=== PATIENT | female | born 1985 | race Caucasian/White ===

== ENCOUNTER 2018-05-07 12:58 | Emergency (ER) | END 2018-05-07 17:29 | disposition home or self-care (01) ==

== ENCOUNTER 2018-07-06 18:29 | Emergency (ER) | END 2018-07-06 23:20 | disposition home or self-care (01) ==

== ENCOUNTER 2018-08-11 02:35 | Emergency (ER) | END 2018-08-11 07:20 | disposition home or self-care (01) ==

== ENCOUNTER 2018-09-11 21:51 | Emergency (ER) | END 2018-09-12 02:53 | disposition home or self-care (01) ==

== ENCOUNTER 2018-10-08 22:47 | Emergency (ER) | END 2018-10-09 05:12 | disposition home or self-care (01) ==

== ENCOUNTER 2018-11-01 23:54 | Inpatient (IN) | END 2018-11-05 11:11 | disposition home or self-care (01) | DRG 342 ==

== ENCOUNTER 2019-02-22 11:47 | Emergency (ER) | payer OTHER ==
[~2019-02-22] VITALS: Ht 165.1 cm; Wt 111.0 kg
[~2019-02-22 11:47] MED LIST: DOCU-216 PO; HYDR-4012 PO; IBUP-1542 PO
[2019-02-22 11:55] VITALS: Ht 165.1 cm; Wt 111.0 kg
[2019-02-22] MEDS ORDERED: ACET500C5 PO (14:11)
[2019-02-22] MEDS ORDERED: IBUP800T48 PO (14:11)
[2019-02-22] MEDS ORDERED: PSEU-79 PO (14:11)
--- NOTE | 2019-02-22 14:25 | ERD ---
ER Documentation Chief Complaint Chief Complaint LEFT EAR PAIN WITH COUGH/CONGESTION/FEVER X 4 DAYS HPI 34-year-old female presenting with ear pain congestion and cough times 4 days. Patient has had tactile fevers. Took Excedrin at 8 AM. Denies medical problems. Surgical history is hernia, appendicitis, tonsillectomy. Social history denies. Allergic to Dilaudid ROS All systems reviewed and are negative except as per history of present illness. Medications Home Meds Active Scripts Pseudoephedrine Hcl* (Suphedrin*) 30 Mg Tablet, 30 MG PO Q6 PRN for CONGESTION, #30 TAB Prov:KAREN RICKS PA-C 02/22/19 Acetaminophen* (Tylophen*) 500 Mg Capsule, 2 CAP PO Q8H PRN for PAIN AND OR ELEVATED TEMP, #20 CAP Prov:KAREN RICKS PA-C 02/22/19 Ibuprofen* (Motrin*) 800 Mg Tab, 800 MG PO Q6, #30 TAB Prov:KAREN RICKS PA-C 02/22/19 Hydrocodone/Acetaminophen ([place] 7.5-325 Tablet) 1 Each Tablet, 1 EACH PO Q6H, #14 TAB Prov:MAHAD MARQUES 11/04/18 Docusate Sodium (Dok) 100 Mg Capsule, 100 MG PO BID, #14 CAP Prov:MAHAD MARQUES. 11/04/18 Ibuprofen* (Motrin*) 600 Mg Tab, 600 MG PO Q6H PRN for PAIN AND OR ELEVATED TEMP, #20 TAB Prov:RAKESH MEJIA MD 10/09/18 Allergies Allergies: Coded Allergies: pineapple (Unverified Allergy, Mild, 11/02/18) RASH hydromorphone (Unverified Adverse Reaction, Severe, RASH, 11/03/18) PMhx/Soc History of Surgery: Yes (TONSILLECTOMY, CHOLECYSTECTOMY ) Anesthesia Reaction: No Hx Neurological Disorder: No Hx Respiratory Disorders: No Hx Cardiac Disorders: No Hx Psychiatric Problems: Yes Hx Miscellaneous Medical Probl: Yes (LUPUS X 1 YEAR) Hx Alcohol Use: No Hx Substance Use: No Hx Tobacco Use: No Smoking Status: Never smoker FmHx Family History: No diabetes, No coronary disease, No other Physical Exam Vitals Vital Signs Date Temp Pulse Resp B/P (MAP) Pulse Ox O2 O2 Flow FiO2 Time Delivery Rate 02/22/19 98.0 96 18 139/63 97 11:55 (88) Physical Exam GENERAL: The patient is well-appearing, well-nourished, in no acute distress HEENT: Atraumatic. Conjunctivae are pink. Pupils equal, round, and reactive to light. There is no scleral icterus. Tympanic membranes clear bilaterally. Oropharynx clear. NECK: C-spine is soft and supple. There is no meningismus. There is no cervical lymphadenopathy CHEST: Clear to auscultation bilaterally. There are no rales, wheezes or rhonchi. HEART: Regular rate and rhythm. No murmurs, clicks, rubs or gallops. ABDOMEN:Soft, nontender and nondistended. Good bowel sounds. No rebound or guarding. No gross peritonitis. No gross organomegaly or masses. Results 24 hrs Laboratory Tests Test 02/22/19 13:03 02/22/19 13:04 02/22/19 13:09 Bedside Urine pH (LAB) 6.5 Bedside Urine Protein (LAB) 1+ Bedside Urine Glucose (UA) Negative Bedside Urine Ketones (LAB) Trace Bedside Urine Blood Trace-intact Bedside Urine Nitrite (LAB) Negative Bedside Urine Leukocyte Esterase (L Negative POC Beta HCG, Qualitative NEGATIVE Monoscreen Negative Procedures/MDM ER course: Strep, mono and influenza negative. Urine negative. MDM: 34 yr old female presenting with generalized fatigue and URI symptoms. Patient likely has viral syndrome. Patient be discharged with supportive medications. I have low suspicion for infectious etiology. Patient is discharged with supportive medications and told to follow-up with primary care within 1-2 days for close evaluation. Patient is told if symptoms change or worsen to return to the ER. All questions answered at discharge. Departure Diagnosis: Primary Impression: Viral syndrome Condition: Stable Patient Instructions: Viral Syndrome (Adult) Referrals: COMMUNITY CLINICS YOU HAVE RECEIVED A MEDICAL SCREENING EXAM AND THE RESULTS INDICATE THAT YOU DO NOT HAVE A CONDITION THAT REQUIRES URGENT TREATMENT IN THE EMERGENCY DEPARTMENT. FURTHER EVALUATION AND TREATMENT OF YOUR CONDITION CAN WAIT UNTIL YOU ARE SEEN IN YOUR DOCTORS OFFICE WITHIN THE NEXT 1-2 DAYS. IT IS YOUR RESPONSIBILITY TO MAKE AN APPOINTMENT FOR FOLOW-UP CARE. IF YOU HAVE A PRIMARY DOCTOR --you should call your primary doctor and schedule an appointment IF YOU DO NOT HAVE A PRIMARY DOCTOR YOU CAN CALL OUR PHYSICIAN REFERRAL HOTLINE AT IF YOU CAN NOT AFFORD TO SEE A PHYSICIAN YOU CAN CHOSE FROM THE FOLLOWING [facility] CLINICS [facility] [address] [facility] [address] [facility] [address] [facility] [address] [facility] [address] [facility] [facility]. [address] Additional Instructions: FOLLOW UP WITH YOUR PRIMARY CARE PHYSICIAN TOMORROW.Return to this facility if you are not improving as expected. KAREN RICKS PA-C Feb 22, 2019 14:25
[2019-02-22 14:40] VITALS: BP 124/68; PULSE 76; RESP 16
== END 2019-02-22 14:41 | disposition home or self-care (01) ==
LOC: FTE 11:47
DX: B34.9 Viral infection, unspecified (principal)
CPT/HCPCS: 81003; 81025; 86308; 87400; 87880; Z7502; 99283

== ENCOUNTER 2019-02-23 20:06 | Emergency (ER) | payer OTHER ==
[~2019-02-23] VITALS: Ht 167.6 cm; Wt 110.1 kg
[~2019-02-23 20:06] MED LIST changes: +ACET500C5 PO; +IBUP800T48 PO; +PSEU-79 PO
[2019-02-23 20:10] VITALS: Ht 167.6 cm; Wt 110.1 kg
--- NOTE | 2019-02-24 02:09 | ERD ---
ER Documentation Chief Complaint Chief Complaint right upper abd pain x 2 days HPI This is a 34-year-old female with a past medical history of lupus, hernia status post repair, appendicitis status post appendectomy, cholelithiasis status post reported cholecystectomy who is presenting to the emergency department for 1-2 days of feeling generally unwell, waxing and waning aching right upper quadrant abdominal pain, nausea with a few episodes of nonbilious nonbloody vomiting, and one episode of loose watery brown nonbloody diarrhea today. The patient denies any dysuria or hematuria or urgency or frequency. She does not believe she could be . She does not believe she could have a sexually transmitted infection. She denies any vaginal burning or bleeding or pain or discharge. The patient was evaluated in the emergency department 2 days ago for ear pain, cough and nasal congestion with subjective fevers. She was diagnosed with a viral syndrome and discharged with prescriptions for Tylenol, Motrin and Sudafed. The patient reports that her ear pain has resolved, but these other symptoms began after assessment 2 days ago. The patient denies current fever or chills. The patient has had no headache or vision changes. The patient does not endorse neck or back pain. The patient denies lightheadedness or dizziness. The patient has had no chest pain or trouble breathing. The patient has had no focal deficits. The patient has had no weakness or numbness or tingling to the face or extremities. ROS All systems reviewed and are negative except as per history of present illness. Medications Home Meds Active Scripts Pseudoephedrine Hcl* (Suphedrin*) 30 Mg Tablet, 30 MG PO Q6 PRN for CONGESTION, #30 TAB Prov:KAREN RICKS PA-C 02/22/19 Acetaminophen* (Tylophen*) 500 Mg Capsule, 2 CAP PO Q8H PRN for PAIN AND OR ELEVATED TEMP, #20 CAP Prov:KAREN RICKS PA-C 02/22/19 Ibuprofen* (Motrin*) 800 Mg Tab, 800 MG PO Q6, #30 TAB Prov:KAREN RICKS PA-C 02/22/19 Docusate Sodium (Dok) 100 Mg Capsule, 100 MG PO BID, #14 CAP Prov:MAHAD MARQUES 11/04/18 Discontinued Scripts Hydrocodone/Acetaminophen ([place] 7.5-325 Tablet) 1 Each Tablet, 1 EACH PO Q6H, #14 TAB Prov:BORA MARQUESJennifer Gaston 11/04/18 Ibuprofen* (Motrin*) 600 Mg Tab, 600 MG PO Q6H PRN for PAIN AND OR ELEVATED TEMP, #20 TAB Prov:RAKESH MEJIA MD 10/09/18 Allergies Allergies: Coded Allergies: pineapple (Unverified Allergy, Mild, 11/02/18) RASH hydromorphone (Unverified Adverse Reaction, Severe, RASH, 11/03/18) PMhx/Soc History of Surgery: Yes (TONSILLECTOMY, CHOLECYSTECTOMY ) Anesthesia Reaction: No Hx Neurological Disorder: No Hx Respiratory Disorders: No Hx Cardiac Disorders: No Hx Psychiatric Problems: Yes Hx Miscellaneous Medical Probl: Yes (LUPUS X 1 YEAR) Hx Alcohol Use: No Hx Substance Use: No Hx Tobacco Use: No FmHx Family History: No diabetes Physical Exam Vitals Vital Signs Date Temp Pulse Resp B/P (MAP) Pulse Ox O2 O2 Flow FiO2 Time Delivery Rate 02/23/19 99.3 104 18 136/89 97 20:10 (105) Physical Exam Const: No apparent distress, well-developed, well-nourished Head: Normocephalic, Atraumatic Eyes: Normal Conjunctiva. Extraocular movements grossly intact. ENT: Normal External Ears, Nose and Mouth. Neck: Full range of motion. No meningismus. Resp: Clear to auscultation bilaterally, No wheezes, rales or rhonchi Cardio: Regular rate and rhythm. No murmurs, rubs or gallops Abd: Soft, non distended. Mild right upper quadrant abdominal tenderness. Normal bowel sounds. Healed surgical scars. Skin: No petechiae or rashes Back: No midline tenderness. No CVA tenderness Ext: No cyanosis, or edema Neur: Awake and alert, oriented 4. Cranial nerves intact. No facial droop. Normal strength, sensation and coordination. Psych: Normal Mood and Affect Result Diagram: 02/24/1920402/24/19 020 Results 24 hrs Laboratory Tests Test 02/24/19 02:00 02/24/19 02:02 02/24/19 02:05 Bedside Urine pH (LAB) 6.0 Bedside Urine Protein (LAB) Negative Bedside Urine Glucose (UA) Negative Bedside Urine Ketones (LAB) Negative Bedside Urine Blood Trace-lysed Bedside Urine Nitrite (LAB) Negative Bedside Urine Leukocyte Esterase Negative (L POC Beta HCG, Qualitative NEGATIVE White Blood Count 7.9 10^3/ul Red Blood Count 4.57 10^6/ul Hemoglobin 12.2 g/dl Hematocrit 38.9 % Mean Corpuscular Volume 85.1 fl Mean Corpuscular Hemoglobin 26.7 pg Mean Corpuscular 31.4 g/dl Hemoglobin Concent Red Cell Distribution Width 13.6 % Platelet Count 319 10^3/UL Mean Platelet Volume 11.1 fl Immature Granulocytes % 0.500 % Neutrophils % 65.3 % Lymphocytes % 23.3 % Monocytes % 7.7 % Eosinophils % 2.9 % Basophils % 0.3 % Nucleated Red Blood Cells % 0.0 /100WBC Immature Granulocytes # 0.040 10^3/ul Neutrophils # 5.2 10^3/ul Lymphocytes # 1.8 10^3/ul Monocytes # 0.6 10^3/ul Eosinophils # 0.2 10^3/ul Basophils # 0.0 10^3/ul Nucleated Red Blood Cells # 0.0 10^3/ul Sodium Level 144 mmol/L Potassium Level 4.5 mmol/L Chloride Level 107 mmol/L Carbon Dioxide Level 27 mmol/L Anion Gap 10 Blood Urea Nitrogen 8 mg/dl Creatinine 0.47 mg/dl Est Glomerular Filtrat Rate mL/min > 60 mL/min Glucose Level 92 mg/dl Calcium Level 8.8 mg/dl Total Bilirubin 0.2 mg/dl Direct Bilirubin 0.00 mg/dl Indirect Bilirubin 0.2 mg/dl Aspartate Amino Transf (AST/SGOT) 24 IU/L Alanine 23 IU/L Aminotransferase (ALT/SGPT) Alkaline Phosphatase 109 IU/L Total Protein 8.0 g/dl Albumin 4.2 g/dl Globulin 3.80 g/dl Albumin/Globulin Ratio 1.10 Lipase 23 U/L Current Medications Medications Dose Sig/Isidro Start Time Status Last (Trade) Ordered Route PRN Stop Time Admin Dose Reason Admin Sodium 1,000 ml @ Q1H ONCE 02/24/19 DC 02/24/19 Chloride 1,000 mls/hr IV 02:30 02:18 02/24/19 03:29 Ondansetron 4 mg ONCE ONCE 02/24/19 DC 02/24/19 HCl (Zofran IV 02:10 02:18 Inj) 02/24/19 02:13 Procedures/MDM MDM The patient's presentation warrants further investigation. Previous medical records, if available, were reviewed. LABS The patient's laboratory testing was obtained and reviewed. No emergent treat ment was required unless described below. CBC: No E/o systemic infection or severe anemia or thrombocytopenia Chemistry: No E/o severe acidosis or alkalosis or renal failure or liver disease or diabetic ketoacidosis Lipase: No E/o pancreatitis Urine: No E/o infection. HCG: Negative IMAGING Imaging and Radiology interpretation reviewed. US RUQ FINDINGS: LIVER: Measures 18.9 cm in length with echogenicity suggesting fatty infiltration.. GALLBLADDER: Unremarkable. There is no sonographic Andrews's sign. COMMON BILE DUCT: Measures up to 0.4 cm. VISUALIZED PANCREAS: Unremarkable. RIGHT KIDNEY: Measures 10.3 cm in length without appreciated abnormality. VISUALIZED AORTA AND INFERIOR VENA CAVA: Unremarkable. IMPRESSION: Unremarkable right upper quadrant ultrasound. Electronically viewed and signed by Betina Spencer Physician on 02/24/2019 03:57 TREATMENT/DISPOSITION The patient presents with abdominal pain, nausea, vomiting and diarrhea. Gastroenteritis versus a viral syndrome or both possible etiologies. I do believe her symptoms will be self-limited. The patient does not have any evidence of peritonitis. The patient does not have clinical symptoms concerning for mesenteric ischemia or ischemic colitis. The patient does have right upper quadrant tenderness. That said, the right upper quadrant ultrasound is unremarkable. I have low suspicion for gallstones, cholecystitis or biliary colic. The patient does not have any epigastric pain. I have low suspicion for gastritis, PUD or GERD. The patient does not have left upper quadrant tenderness. I have low suspicion for pancreatitis. The patient does not have any right lower quadrant tenderness, or periumbilical tenderness. She had a previous appendicitis. I have low suspicion for appendicitis. The patient does not have suprapubic tenderness. I have decreased suspicion for cystitis. The patient does not have any left lower quadrant tenderness, and I have low suspicion for diverticulosis or diverticulitis. The patient does not have any flank tenderness. The patient does not have gross hematuria. I have decreased suspicion for nephrolithiasis or renal colic. The patient does not have any palpable pulsatile mass or severe abdominal pain radiating to the back. I have low suspicion for aortic aneurysm, dissection or rupture. The patient was treated with IV fluids and Zofran in the emergency department. DISCHARGE Upon reevaluation of the patient, symptoms have improved. No emergent diagnoses were identified. At this time, I feel that the patient stable for discharge. The patient was instructed to follow-up with a primary care physician in 1-3 days. The patient will be given strict precautions with which to return to the emergency department. Prescriptions: Zofran The patient's blood pressure was elevated at greater than 120/80 while in the emergency department. The patient was otherwise stable with no evidence of hypertensive urgency or emergency. The patient does not require admission for blood pressure control. I have discussed with the patient the risks of hypertension. I have instructed the patient to return to the ER for any new or worsening symptoms including chest pain, shortness of breath, headache, blurred vision, confusion, nausea, vomiting or LOC. I have advised the patient to follow up with the primary care physician for outpatient monitoring and treatment for hypertension in 1-3 days. Disclaimer: Inadvertent spelling and grammatical errors are likely due to EHR/dictation software use and do not reflect on the overall quality of patient care. Note that the electronic time recorded on this note does not necessarily reflect the actual time of the patient encounter. Departure Diagnosis: Primary Impression: Abdominal pain Abdominal location: right upper quadrant Qualified Codes: R10.11 - Right upper quadrant pain Additional Impression: Nausea vomiting and diarrhea Condition: Stable Patient Instructions: Abdominal Pain, Nausea and Vomiting-Adult Additional Instructions: Thank you for for coming to [facility] for your care today. Please ask your nurse or provider if you have questions about your care today and do not leave until all your questions have been answered. Please use any medications given as directed and follow-up with your doctor (or the doctor you were referred to) in the next 1-3 days. If you do not have a primary care doctor you may follow up at the [facility] or [facility] clinic (listed below). You may also use motrin and tylenol as needed for fever and/or pain unless instructed otherwise by your provider or nurse. Indications for more urgent follow-up have been discussed, but you may return to the Emergency Department at ANY time for any worrisome or worsening symptoms. If you have abdominal pain, please know that no test or exam you received is perfect and you should follow up within 8 hours for continued pain. If you had any imaging studies today, such as an X-Ray or CT Scan, these studies will be reviewed later by a radiologist. You will be called if there are important findings that were not identified today, so make sure the contact information you provided at registration is correct. If you received any narcotic pain control medicine today, such as Vicodin, Morphine or Dilaudid, your coordination and judgment may be affected for a number of hours. Please do not drive or operate heavy machinery, and you may want someone to assist you at home. If you were given a prescription for narcotic medication, be aware that it is very addictive- use sparingly and only if necessary. PLEASE SEEK FURTHER EVALUATION AND MANAGEMENT AT YOUR DOCTORS OFFICE WITHIN THE NEXT 1-3 DAYS. IT IS YOUR RESPONSIBILITY TO MAKE AN APPOINTMENT FOR FOLOW-UP CARE. IF YOU HAVE A PRIMARY DOCTOR, PLEASE CALL THEIR OFFICE TO SCHEDULE AN APPOINTMENT FOR FOLLOW UP. IF YOU DO NOT HAVE A PRIMARY DOCTOR YOU CAN CALL OUR PHYSICIAN REFERRAL HOTLINE AT IF YOU CAN NOT AFFORD TO SEE A PHYSICIAN YOU CAN CHOSE FROM THE FOLLOWING [facility] CLINICS: [facility] [address] [facility]. [facility] [address] [facility] [facility] [address] [facility] [facility] [address] [facility]. [facility] [address] [facility]. [facility]. [address] MD Feb 24, 2019 02:03
[2019-02-24] MEDS ORDERED: ONDANSETRON 4 MG INJ IV ONE (02:10)
[2019-02-24] MEDS ORDERED: SOD CHLORIDE 0.9% 1,000 ML IV ONE (02:30)
[2019-02-24] MEDS ORDERED: ONDA8TAB9 PO (04:53)
[2019-02-24 04:55] VITALS: BP 123/87; PULSE 95; RESP 18
== END 2019-02-24 05:15 | disposition home or self-care (01) ==
LOC: E/R 20:06
DX: R10.11 Right upper quadrant pain (principal); R11.2 Nausea with vomiting, unspecified; R19.7 Diarrhea, unspecified
CPT/HCPCS: 36415; 76705; 80053; 81003; 81025; 83690; 85025; 96374; J2405; J7030; Z7502

== ENCOUNTER 2019-04-12 11:16 | Emergency (ER) | payer OTHER ==
[~2019-04-12] VITALS: Wt 90.0 kg
[~2019-04-12 11:16] MED LIST changes: -HYDR-4012 PO; -IBUP-1542 PO; +ONDA8TAB9 PO
[2019-04-12] MEDS ORDERED: ONDANSETRON 4 MG INJ IV STA (12:13)
[2019-04-12] MEDS ORDERED: FAMOTIDINE 20 MG INJ IV STA (12:13)
[2019-04-12] MEDS ORDERED: SOD CHLORIDE 0.9% 500 ML IV ONE (12:30)
[2019-04-12] MEDS ORDERED: IBUP-1542 PO (16:13)
[2019-04-12] MEDS ORDERED: ONDA4TAB14 PO (16:13)
--- NOTE | 2019-04-12 16:21 | ERD ---
ER Documentation Chief Complaint Chief Complaint VOMITING X 2 DAYS HPI 34-year-old female patient with no significant past medical history presents to the ED complaining of mid abdominal pain that started 2 days ago associated with some vomiting. States that it does radiate to the right side of her abdomen. States that she did get an appendectomy in 31 October 2018. Denies any chest pain, shortness of breath, chest pain, wheezing, dysuria, urgency, frequency. ROS All systems reviewed and are negative except as per history of present illness. Medications Home Meds Active Scripts Acetaminophen* (Tylophen*) 500 Mg Capsule, 1 CAP PO Q6H PRN for PAIN AND OR ELEVATED TEMP, #20 CAP Prov:YOSI SHELTON PA-C 04/12/19 Famotidine* (Pepcid*) 20 Mg Tablet, 20 MG PO BID, #20 TAB Prov:YOSI SHELTON PA-C 04/12/19 Ondansetron (Ondansetron Odt) 4 Mg Tab.rapdis, 4 MG PO Q6H PRN for NAUSEA AND/OR VOMITING, #10 TAB Prov:YOSI SHELTON PA-C 04/12/19 Ondansetron Hcl* (Zofran*) 8 Mg Tablet, 8 MG PO Q6H PRN for NAUSEA AND OR VOMITING, #20 TAB Prov:GINNA RIVAS MD 02/24/19 Pseudoephedrine Hcl* (Suphedrin*) 30 Mg Tablet, 30 MG PO Q6 PRN for CONGESTION, #30 TAB Prov:KAREN RICKS PA-C 02/22/19 Acetaminophen* (Tylophen*) 500 Mg Capsule, 2 CAP PO Q8H PRN for PAIN AND OR ELEVATED TEMP, #20 CAP Prov:KAREN RICKS PA-C 02/22/19 Ibuprofen* (Motrin*) 800 Mg Tab, 800 MG PO Q6, #30 TAB Prov:KAREN RICKS PA-C 02/22/19 Docusate Sodium (Dok) 100 Mg Capsule, 100 MG PO BID, #14 CAP Prov:MAHAD MARQUES 11/04/18 Allergies Allergies: Coded Allergies: pineapple (Unverified Allergy, Mild, 11/02/18) RASH hydromorphone (Unverified Adverse Reaction, Severe, RASH, 11/03/18) PMhx/Soc History of Surgery: Yes (TONSILLECTOMY, CHOLECYSTECTOMY ,HERNIA REPAIR) Anesthesia Reaction: No Hx Neurological Disorder: No Hx Respiratory Disorders: No Hx Cardiac Disorders: No Hx Psychiatric Problems: Yes Hx Miscellaneous Medical Probl: Yes (LUPUS X 1 YEAR) Hx Alcohol Use: No Hx Substance Use: No Hx Tobacco Use: No Smoking Status: Never smoker FmHx Family History: No diabetes, No coronary disease Physical Exam Vitals Vital Signs Date Temp Pulse Resp B/P (MAP) Pulse Ox O2 O2 Flow FiO2 Time Delivery Rate 04/12/19 98.1 89 17 103/63 99 Room Air 16:35 (76) 04/12/19 98.0 98 18 150/78 99 11:19 (102) Physical Exam Const: [id number], well-nourished. In no acute distress. Head: Atraumatic, normocephalic Eyes: Normal Conjunctiva without injection. No purulent discharge. ENT: Normal external ear, nose. Moist oropharynx without tonsillar exudates. Non-erythematous pharynx. Uvula midline. No drooling. No trismus. Neck: No cervical midline tenderness. Full range of motion. No meningismus. No cervical lymphadenopathy. No JVD. Resp: Clear to auscultation bilaterally. No wheezing, rhonchi, rales, or crackles. No accessory muscle use. No retractions. Cardio: Regular rate and rhythm. No murmurs, rubs or gallops. Abd: Soft, nontender, non distended. Normal bowel sounds. No palpable masses. No rebound tenderness. No guarding. Negative McBurney's point. Negative psoas sign. Negative obturator sign. Skin: No petechiae or rashes Back: No midline tenderness. No CVA tenderness. Ext: No cyanosis, or edema. Neur: Awake and alert. Normal gait. Normal coordination. Psych: Normal Mood and Affect Result Diagram: 04/12/19 1226 04/12/19 1226 Results 24 hrs Laboratory Tests Test 04/12/19 12:26 04/12/19 13:39 White Blood Count 10.7 10^3/ul Red Blood Count 4.75 10^6/ul Hemoglobin 12.9 g/dl Hematocrit 39.9 % Mean Corpuscular Volume 84.0 fl Mean Corpuscular Hemoglobin 27.2 pg Mean Corpuscular Hemoglobin Concent 32.3 g/dl Red Cell Distribution Width 13.2 % Platelet Count 364 10^3/UL Mean Platelet Volume 11.0 fl Immature Granulocytes % 0.300 % Neutrophils % 75.6 % Lymphocytes % 15.3 % Monocytes % 6.9 % Eosinophils % 1.6 % Basophils % 0.3 % Nucleated Red Blood Cells % 0.0 /100WBC Immature Granulocytes # 0.030 10^3/ul Neutrophils # 8.1 10^3/ul Lymphocytes # 1.6 10^3/ul Monocytes # 0.7 10^3/ul Eosinophils # 0.2 10^3/ul Basophils # 0.0 10^3/ul Nucleated Red Blood Cells # 0.0 10^3/ul Urine Color YELLOW Urine Clarity SLIGHTLY CLOUDY Urine pH 5.0 Urine Specific [place] 1.025 Urine Ketones NEGATIVE mg/dL Urine Nitrite NEGATIVE mg/dL Urine Bilirubin NEGATIVE mg/dL Urine Urobilinogen NEGATIVE mg/dL Urine Leukocyte Esterase NEGATIVE Adalid/ul Urine Microscopic RBC 1 /HPF Urine Microscopic WBC 2 /HPF Urine Squamous Epithelial Cells FEW /HPF Urine Mucus MODERATE /HPF Urine Hemoglobin 1+ mg/dL Urine Glucose NEGATIVE mg/dL Urine Total Protein NEGATIVE mg/dl Sodium Level 143 mmol/L Potassium Level 4.3 mmol/L Chloride Level 108 mmol/L Carbon Dioxide Level 25 mmol/L Anion Gap 10 Blood Urea Nitrogen 12 mg/dl Creatinine 0.50 mg/dl Est Glomerular Filtrat Rate mL/min > 60 mL/min Glucose Level 95 mg/dl Calcium Level 9.3 mg/dl Total Bilirubin 0.5 mg/dl Direct Bilirubin 0.00 mg/dl Indirect Bilirubin 0.5 mg/dl Aspartate Amino Transf (AST/SGOT) 22 IU/L Alanine Aminotransferase (ALT/SGPT) 14 IU/L Alkaline Phosphatase 115 IU/L Total Protein 8.7 g/dl Albumin 4.5 g/dl Globulin 4.20 g/dl Albumin/Globulin Ratio 1.07 Lipase 32 U/L POC Beta HCG, Qualitative NEGATIVE Current Medications Medications Dose Sig/Isidro Start Time Status Last (Trade) Ordered Route PRN Stop Time Admin Dose Reason Admin Ondansetron 4 mg ONCE STAT 04/12/19 DC 04/12/19 HCl (Zofran IV 12:13 12:27 Inj) 04/12/19 12:15 Famotidine 20 mg ONCE STAT 04/12/19 DC 04/12/19 (Pepcid Iv) IV 12:13 12:27 04/12/19 12:15 Sodium 500 ml @ Q1H ONCE 04/12/19 DC 04/12/19 Chloride 500 mls/hr IV 12:30 12:27 04/12/19 13:29 Procedures/MDM 34-year-old female patient with a past medical history of appendectomy presents to the ED complaining of mid abdominal pain that started 2 days ago associated with vomiting. Patient is afebrile and nontoxic appearing. Patient was further worked up with CBC, CMP, lipase, UA, CT of the abdomen and pelvis without contrast. This is patient's second visit to the ED for similar symptoms. Patient's pain and symptoms have improved after treatment with famotidine 20 mg IV, 4 mg IV Zofran, 500 mL normal saline. CBC: No leukocytosis. No e/o of systemic infection. No e/o anemia. CMP: No e/o severe acidosis, alkalosis, renal failure, diabetic ketoacidosis, liver disease Lipase within normal limits. Urine: No leukocyte esterase, no nitrites, no hematuria. Urine : Negative IMPRESSION: 1. No evidence of acute intra-abdominal/pelvic inflammatory process. No evidence of bowel obstruction. The appendix is not visualized. Status post appendectomy. Small hiatal hernia. 2. Status post cholecystectomy. 3. Punctate left-sided nonobstructing nephrolithiasis. No evidence of obstructive uropathy within both kidneys. 4. No evidence of free fluid or free air. No gross focal fluid collections. Patient had some punctate left-sided nonobstructing nephrolithiasis noted. Differentials include gastritis, GERD. Low suspicion for ectopic , ovarian torsion,cholecystitis, choledocholithiasis, cholangitis, pancreatitis, appendicitis, bowel obstruction, ileus, volvulus, nephrolithiasis, pyelonephritis, hepatitis, perforated viscus, diverticulitis, strangulated/incarcerated hernia, DKA, acute abdomen, mesenteric ischemia or other emergent conditions. Diagnosis: Abdominal pain Discharge medications: Tylenol, Pepcid, Zofran Follow up with primary care physician in 1-2 days for referral to attendant arcade. Instructed patient to return to the ED sooner for any worsening symptoms. Patient's questions were answered. Patient understood and agreed with discharge plan. Patient discharged stable. Disclaimer: Inadvertent spelling and grammatical errors are likely due to EHR/dictation software use and do not reflect on the overall quality of patient care. Also, please note that the electronic time recorded on this note does not necessarily reflect the actual time of the patient encounter. Departure Diagnosis: Primary Impression: Abdominal pain Abdominal location: unspecified location Qualified Codes: R10.9 - Unspecified abdominal pain Condition: Stable Patient Instructions: Abdominal Pain, Identifying Kidney Stones, Preventing Kidney Stones Referrals: [facility] YOU HAVE RECEIVED A MEDICAL SCREENING EXAM AND THE RESULTS INDICATE THAT YOU DO NOT HAVE A CONDITION THAT REQUIRES URGENT TREATMENT IN THE EMERGENCY DEPARTMENT. FURTHER EVALUATION AND TREATMENT OF YOUR CONDITION CAN WAIT UNTIL YOU ARE SEEN IN YOUR DOCTORS OFFICE WITHIN THE NEXT 1-2 DAYS. IT IS YOUR RESPONSIBILITY TO MAKE AN APPOINTMENT FOR FOLOW-UP CARE. IF YOU HAVE A PRIMARY DOCTOR --you should call your primary doctor and schedule an appointment IF YOU DO NOT HAVE A PRIMARY DOCTOR YOU CAN CALL OUR PHYSICIAN REFERRAL HOTLINE AT IF YOU CAN NOT AFFORD TO SEE A PHYSICIAN YOU CAN CHOSE FROM THE FOLLOWING [facility] [address] [facility]. [facility] [address] [facility]. [facility] [address] [facility] [facility] [address] [facility] [facility] [address] [facility]. [facility]. [address] [facility]. [facility] YOU HAVE RECEIVED A MEDICAL SCREENING EXAM AND THE RESULTS INDICATE THAT YOU DO NOT HAVE A CONDITION THAT REQUIRES URGENT TREATMENT IN THE EMERGENCY DEPARTMENT. FURTHER EVALUATION AND TREATMENT OF YOUR CONDITION CAN WAIT UNTIL YOU ARE SEEN IN YOUR DOCTORS OFFICE WITHIN THE NEXT 1-2 DAYS. IT IS YOUR RESPONSIBILITY TO MAKE AN APPOINTMENT FOR FOLOW-UP CARE. IF YOU HAVE A PRIMARY DOCTOR --you should call your primary doctor and schedule and appointment IF YOU DO NOT HAVE A PRIMARY DOCTOR YOU CAN CALL OUR PHYSICIAN REFERRAL HOTLINE AT . IF YOU CAN NOT AFFORD TO SEE A PHYSICIAN YOU CAN CHOSE FROM THE FOLLOWING [facility] INSTITUTIONS: [facility] [address] [place] [address] [facility] [address] [place] [address] [facility] + [facility] [address] [place] [address] [facility] URGENT CARE/SPECIALTIES Additional Instructions: Call your primary care doctor TOMORROW for an appointment during the next 2-3 days.See the doctor sooner or return here if your condition worsens before your appointment time. YOSI SHELTON PA-C April 12, 2019 16:21
[2019-04-12] MEDS ORDERED: ACET500C5 PO (16:22)
[2019-04-12] MEDS ORDERED: FAMO-96 PO (16:22)
[2019-04-12 16:35] VITALS: BP 103/63; PULSE 89; RESP 17
== END 2019-04-12 16:37 | disposition home or self-care (01) ==
LOC: FTE 11:16
DX: R10.9 Unspecified abdominal pain (principal); R11.10 Vomiting, unspecified
CPT/HCPCS: 74176; 80053; 81001; 81025; 83690; 85025; J2405; J7040; Z7610; 36415; 96361; 96374; 96375

== ENCOUNTER 2019-08-17 18:53 | Emergency (ER) | payer OTHER ==
[~2019-08-17] VITALS: Ht 167.6 cm; Wt 113.8 kg
[~2019-08-17 18:53] MED LIST changes: +FAMO-96 PO; +HYDR-4011 PO; +NAPR-985 PO; +ONDA4TAB14 PO; +PENI500T PO; +[UNRECOGNIZED DRUG - CODE] MM
[2019-08-17 19:07] VITALS: Ht 167.6 cm; Wt 113.8 kg
[2019-08-17] MEDS ORDERED: ONDANSETRON (ODT) 4 MG TAB ODT STA (19:58)
[2019-08-17] MEDS ORDERED: KETOROLAC 60 MG INJ IM STA (19:58)
[2019-08-17] MEDS ORDERED: HYDROCODONE/APAP (10/325) TAB PO ONE (20:00)
[2019-08-17 21:12] VITALS: BP 134/81; PULSE 84; RESP 16
== END 2019-08-17 21:13 | disposition home or self-care (01) ==
LOC: FTE 18:53
DX: M54.41 Lumbago with sciatica, right side (principal)
CPT/HCPCS: 81025; 96372; J1885; Z7502; Z7610